=== PATIENT | female | born 2000 | race Caucasian/White ===

== ENCOUNTER 2022-11-11 22:45 | Emergency (ER) | payer SELFPAY ==
[2022-11-11 22:58] VITALS: BP 126/77; PULSE 74; RESP 16; TEMP 36.5; O2SAT 100
--- NOTE | 2022-11-12 01:10 | PC.NURSE ---
Patient reports she just wanted a test and when she was informed that the bedside test was negative she decided she did not need [email or web address] be seen by a doctor and left the emergency room
== END 2022-11-12 01:12 | disposition left against medical advice (07) ==
PROVIDERS: Emergency Provider Emergency Medicine
DX: R10.9 Unspecified abdominal pain (principal)
CPT/HCPCS: 81025; 99199